=== PATIENT | female | born 1975 | race Caucasian/White ===

== ENCOUNTER → 2018-06-30 08:07 | Outpatient (CLI) | payer OTHER, SELFPAY ==
--- NOTE | 2018-06-30 08:08 | DI.US.S_ITS ---
ULTRASOUND OF LEFT BREAST: 06/30/2018 CLINICAL: Follow-up aspiration. Comparison is made to exams dated: 06/30/2018 mammogram, 06/30/2017 ultrasound biopsy, 06/30/2017 mammogram, 05/18/2017 ultrasound, and 05/18/2017 mammogram - [facility]. Color flow ultrasound of the left breast was performed on the areas of interest. Mojica scale images of the real-time examination were reviewed. There is a 1.2 cm x 6 cm x 5 cm cluster of microcysts in the left breast at 3 o'clock middle depth. This is not significantly changed and correlates with mammography findings. IMPRESSION: PROBABLY BENIGN The 1.2 cm x 6 cm x 5 cm cluster of microcysts in the left breast is probably benign. A follow-up left ultrasound in 6 months is recommended to demonstrate stability. This exam was interpreted at Station ID: [id number]. Electronically Signed By: Maryam brand/:06/30/2018 10:29:26 letter sent: Followup Recommended Ultrasound BI-RADS: 3 Probably benign
--- NOTE | 2018-06-30 08:08 | DI.MG.S_ITS ---
BILATERAL DIGITAL DIAGNOSTIC MAMMOGRAM 3D/2D: 06/30/2018 CLINICAL: Late short follow up, due bilaterally. Family history of breast cancer. Comparison is made to exams dated: 06/30/2017 mammogram and 05/18/2017 mammogram - [facility]. There are scattered fibroglandular elements in both breasts. There is an irregular asymmetry in the left breast at 3 o'clock middle depth. There is a biopsy clip associated with the asymmetry. No other significant masses, calcifications, or other findings are seen in either breast. IMPRESSION: INCOMPLETE: NEEDS ADDITIONAL IMAGING EVALUATION The irregular asymmetry in the left breast is indeterminate. A targeted ultrasound of the left breast is recommended and will be performed immediately following this exam. This exam was interpreted at Station ID: [id number]. NOTE: For mammograms, a report in lay terms will be sent to the patient. Approximately 15% of breast malignancies will not be visualized mammographically. In the management of a palpable breast mass, a negative mammogram must not discourage biopsy of a clinically suspicious lesion. Electronically Signed By: Maryam Cristobal M.D. lk/:06/30/2018 10:16:07 ACR BI-RADS Category 0: Incomplete 3340F
== END ==
PROVIDERS: PCP Family Medicine; Visit Provider Family Medicine
DX: R92.8 Other abnormal and inconclusive findings on diagnostic imaging of breast (principal); N64.89 Other specified disorders of breast; Z80.3 Family history of malignant neoplasm of breast
CPT/HCPCS: 76642; 77066; G0279

== ENCOUNTER → 2018-07-11 12:13 | Outpatient (CLI) | payer OTHER, SELFPAY ==
--- NOTE | 2018-07-28 16:27 | P.HOLT.S_ITS ---
Head Still Operator Report Referral & Results Date Patient Seen: 07/11/18 Requesting provider: Lizabeth Duggan Indication: Palpitations Duration of monitoring (days): 13 Diary information: Patient had to diary entries associated with sinus rhythm There were 5 patient triggered events associated with sinus rhythm, PACs, and PVCs Data: Minimum heart rate identified was 40 beats per minute at 08:12 on 07/23/2018 Maximum heart rate was 169 beats per minute at 13:57 on 07/15/2018 Less than 1% of identified beats or either PACs or PVCs Impression: Patient with occasional to rare PACs and PVCs No significant dysrhythmia identified in this study
== END ==
PROVIDERS: PCP Family Medicine; Visit Provider Family Medicine
DX: R00.2 Palpitations (principal)
CPT/HCPCS: 0296T; 0298T

== ENCOUNTER → 2018-07-28 07:42 | Outpatient (CLI) | payer OTHER, SELFPAY ==
--- NOTE | 2018-07-28 07:44 | DI.MRI.S_ITS ---
PROCEDURE: MR ANGIO HEAD WO CON INDICATIONS: screening for aneurysm, mult 1st degree relatives with hx of TECHNIQUE: Noncontrast axial 3-D [id number] MR angiogram, with 3-dimensional maximum intensity projection (MIP) reformats of the internal carotid arteries and posterior circulation then performed. COMPARISON: None. FINDINGS: Image quality: Excellent. Anterior circulation: Intracranial internal carotid arteries demonstrate normal size and intraluminal flow signal. The flow within the paired anterior cerebral arteries is normal and symmetric. The flow within the middle cerebral arteries is normal and symmetric. The anterior communicating artery is seen. No stenoses, occlusions, or aneurysms. Posterior circulation: Visualized portions of the vertebral arteries demonstrate normal caliber, and join to form a normal appearing basilar artery. The flow within the posterior cerebral arteries is normal and symmetric. No stenoses, occlusions, or aneurysms. IMPRESSION: Negative cerebral MR angiography. Dictated by: Darell Lopez M.D. on 07/28/2018 at 9:19 Approved by: Darell Lopez M.D. on 07/28/2018 at 9:21
== END ==
PROVIDERS: PCP Family Medicine; Visit Provider Family Medicine
DX: Z13.6 Encounter for screening for cardiovascular disorders (principal); Z82.49 Family history of ischemic heart disease and other diseases of the circulatory system
CPT/HCPCS: 70544

== ENCOUNTER → 2020-07-11 13:53 | Outpatient (CLI) | payer OTHER, SELFPAY ==
[2020-07-11 15:08] LABS: Add Manual Diff / Slide Review NO; Basophils Absolute Auto 100 /uL (0-100); Basophils Percent Auto 0.6 % (0-2); Eosinophils Absolute Auto 200 /uL (0-450); Eosinophils Percent Auto 2.9 % (2-4); Hematocrit 39.6 % (36-46); Hemoglobin 13.2 g/dL (12.0-16.0); Lymphocytes Absolute Auto 3000 /uL (1100-4500); Lymphocytes Percent Auto 35.9 % (25-40); Mean Corpuscular HGB Conc 33.3 % (30-36); Mean Corpuscular Hemoglobin 27.3 PG (26-34); Monocytes Absolute Auto 500 /uL (0-900); Neutrophils Absolute Auto 4600 /uL (1500-7000); Neutrophils Percent Auto 54.6 % (50-75); Platelet Count 351 X10^3/uL (150-400); Red Blood Cell Count 4.83 X10^6/uL (4.0-5.2); Red Cell Distribution Width 13.5 % (11.6-14.8); White Blood Cell Count 8.4 X10^3/uL (4.5-11.0)
[2020-07-11 15:19] LABS: Alanine Aminotransferase 34 IU/L (<35); Albumin 4.4 g/dL (3.5-5.0); Albumin Globulin Ratio 1.3 (1.0-2.8); Alkaline Phosphatase 97 U/L (38-126); Aspartate Aminotransferase 33 IU/L (14-36); Bilirubin Total 0.3 mg/dL (0.2-1.3); Blood Urea Nitrogen 13 mg/dL (7-17); Calcium 9.4 mg/dL (8.4-10.2); Carbon Dioxide 30 mmol/L (22-32); Chloride 101 mmol/L (98-107); Cholesterol 201 mg/dL (140-199); Estimated Glomerular Filt Rate > 60.0 mL/min (>60); Globulin 3.3 g/dL (1.7-4.1); Glucose 92 mg/dL (70-100); HDL Cholesterol 44 mg/dL (40-60); HEMOLYSIS < 15 (0-50); LDL Cholesterol Calculated 127 mg/dL (<100); Potassium 3.9 mmol/L (3.4-5.1); Sodium 138 mmol/L (137-145); Total Protein 7.7 g/dL (6.3-8.2); Triglycerides 148 mg/dL (35-150)
[2020-07-11 15:50] LABS: TSH w/ Reflex to FT4 1.74 uIU/mL (0.47-4.68)
== END ==
PROVIDERS: PCP Family Medicine; Referring Provider Family Medicine; Visit Provider Family Medicine
DX: R60.0 Localized edema (principal); Z13.220 Encounter for screening for lipoid disorders
CPT/HCPCS: 36415; 80053; 80061; 84443; 85025

== ENCOUNTER → 2022-05-22 10:00 | Outpatient (CLI) | payer OTHER, SELFPAY ==
--- NOTE | 2022-05-22 10:03 | DI.MG.S_ITS ---
BILATERAL DIGITAL SCREENING MAMMOGRAM 3D/2D WITH CAD: 05/22/2022 CLINICAL: Routine screening. Family history of breast cancer. Comparison is made to exams dated: 06/30/2018 mammogram, 06/30/2017 mammogram, and 05/18/2017 mammogram - . There are scattered areas of fibroglandular density in both breasts (category b / 25%-50% glandular tissue). Current study was also evaluated with a Computer Aided Detection (CAD) system. No significant masses, calcifications, or other findings are seen in either breast. There has been no significant interval change. IMPRESSION: NEGATIVE There is no mammographic evidence of malignancy. A 1 year screening mammogram is recommended. Based on the Tyrer Cuzick model (a risk assessment model) the patient's lifetime risk is 14.1% and her 10 year risk is 3.0%. According to the ACR, ACS, and NCCN guidelines, an annual breast MRI exam along with mammogram is recommended if the patient's lifetime risk is 20% or greater. This exam was interpreted at Station ID: [id number]. NOTE: For mammograms, a report in lay terms will be sent to the patient. Approximately 15% of breast malignancies will not be visualized mammographically. In the management of a palpable breast mass, a negative mammogram must not discourage biopsy of a clinically suspicious lesion. Electronically Signed By: Anthony brown/sari:05/24/2022 02:10:01 letter sent: Normal Exam ACR BI-RADS Category 1: Negative 3341F
== END ==
PROVIDERS: PCP Family Medicine; Referring Provider Family Medicine; Visit Provider Family Medicine
DX: Z12.31 Encounter for screening mammogram for malignant neoplasm of breast (principal); Z80.3 Family history of malignant neoplasm of breast
CPT/HCPCS: 77063; 77067

== ENCOUNTER → 2022-08-02 12:29 | Outpatient (CLI) | payer OTHER, SELFPAY ==
--- NOTE | 2022-08-02 12:30 | DI.US.S_ITS ---
PROCEDURE: US PELVIC COMPLETE INDICATIONS: IUD partially removed - arm of IUD tore off and not removed TECHNIQUE: Real-time scanning was performed of the pelvic organs, with image documentation. Additional endovaginal scanning was necessary due to incomplete visualization of the adnexal and endometrial structures by transabdominal scanning. COMPARISON: None. FINDINGS: Uterus: Uterus is anteverted and normal in size at 7.6 x 4.1 x 3.5 cm. The myometrium is homogeneous. The endometrium measures 3 mm combined thickness. A linear echogenic structure likely representing the remaining portion of the IUD is present in the uterine cavity. A portion of the remnant IUD may be penetrating into the myometrium, best seen on cine clips. Ovaries: The right ovary measures 2.5 x 1.7 x 1.5 cm, with a calculated ovarian volume of 4 cc. The left ovary is not visualized, likely obscured by bowel gas. Right ovary is unremarkable in appearance. No adnexal mass identified. Other: No pathologic free abdominal or pelvic fluid. IMPRESSION: A linear echogenic structure in the uterine cavity likely represents the remaining portion of the IUD, as per clinical history. A portion of the remnant IUD may be penetrating into the myometrium. We strive to produce accurate, complete, and clear reports of imaging services. To assist us in improving patient care, this report was composed using standard report templates and voice recognition software. Therefore, it may contain abnormal punctuation, insertions and/or omissions. Occasional wrong-word or sound-alike substitutions may occur. Though we review the report and make efforts to correct it, we do recommend that the report be read carefully in proper context to recognize any text inaccuracies. Dictated by: Tip Denny M.D. on 08/02/2022 at 15:12 Approved by: Tip Denny M.D. on 08/02/2022 at 15:41
== END ==
PROVIDERS: PCP Family Medicine; Referring Provider Family Medicine; Visit Provider Family Medicine
DX: T83.31XA Breakdown (mechanical) of intrauterine contraceptive device, initial encounter (principal)
CPT/HCPCS: 76856

== ENCOUNTER 2022-08-05 10:16 | Day surgery (SDC) | payer OTHER, SELFPAY ==
[2022-08-05] VITALS (7 sets, daily range): BP systolic 123–145; BP diastolic 70–90; PULSE 71–89; RESP 11–16; TEMP 36.5–37.3; O2SAT 97–100; BMI 35.3
[2022-08-05] MEDS: LACTATED RINGERS 1,000 ML 100 ML IV (10:28)
--- NOTE | 2022-08-05 12:17 | P.HPOB_ITS ---
History of Present Illness History of Present Illness Reason for admission: other (Arm of IUD embedded in the uterine wall) Narrative: Fadia Linares is a 47 year old female 1 para 0 who presents for diagnostic hysteroscopy with removal of embedded arm of the IUD, and placement of new Mirena IUD [facility] Family History (Updated 02/07/17 @ 00:00 by Conversion Provider) Grandfather Heart disease Mother Age: 67 Depression Mental health problem Grandfather Heart disease Grandmother Heart disease Stroke Social History household members: spouse Smoking Status: Former smoker alcohol intake: current substance use type: does not use Meds Home Medications and Allergies Home Medications Medication Instructions Recorded Confirmed Type copper 380 square mm intrauterine 1 ea vaginal X1 ##0 02/09/17 08/05/22 History device (ParaGard T 380A) multivitamin (Multiple Vitamins 1 tab PO DAILY ##0 02/09/17 08/05/22 History tablet) Allergies Allergy/AdvReac Type Severity Reaction Status Date / Time No Known Drug Allergies Allergy Verified 08/05/22 10:45 Exam Vital Signs (past 8 hours): - 08/05/22 10:47 Temperature 99.1 F Pulse Rate 89 Respiratory Rate 16 Blood Pressure 145/90 H Pulse Oximetry 100 Oxygen Delivery Method Room Air Oxygen Delivery Method Room Air Narrative Exam Narrative: HEENT: No thyromegaly, no anterior cervical or supraclavicular lymphadenopathy. Lungs:Clear to auscultation bilaterally, no wheezes. Cardiovascular: Regular rate and rhythm, no murmurs, rubs, or gallops. Abdomen: No scars. No hepatosplenomegaly. No masses palpable. External genitalia: Normal Vagina: Normal Cervix: Normal. Nulliparous Bimanual exam: 8 Week size anteverted uterus. Mobile. Ext: No edema Assessment & Plan Assessment & Plan narrative: Assessment: 47-year-old 1 para 0 with 1 arm of the Mirena IUD embedded in the uterine wall Incomplete removal of Mirena IUD Plan: Diagnostic hysteroscopy with retrieval of arm of IUD and placement of new Mirena IUD The risks, benefits, and alternatives to the procedure were explained to the patient. The risks including bleeding, infection, and uterine perforation. She understands these risks and agrees to proceed. A full par Q was held and consent form was signed. Time Spent With Patient Time with patient: less than 30 minutes
--- NOTE | 2022-08-05 12:20 | PM.PREOP ---
Pre-operative Note COVID-19 Criteria for continued procedure: Non-surgical alternatives not available or appropriate per current SOC Interval Note History & Physical reviewed/Exam performed by Physician: Yes Changes to H&P: No H&P completed within 30 days and has changed as indicated here:: 08/05/22
--- NOTE | 2022-08-05 12:57 | SUR.OPER ---
Lithotomy on padded OR bed, head on pillow, arms secured on padded arm boards at <90 degrees abduction. Legs secured in padded yellow fins stirrups.
--- NOTE | 2022-08-05 13:52 | PM.GYNOP.1 ---
Operative Date/Time/Diagnoses Date of procedure: 08/05/22 Time of procedure: 13:52 Pre-op diagnosis: Arm of Paragard IUD embedded in uterine wall on ultrasound Remainder of IUD removed in the office Post-op diagnosis: same Procedure & Clinicians Procedure: Procedures Operation Date: 08/05/22 11:45 Actual Procedure Side Surgeon p DIAGNOSTIC Hysteroscopy D&C, REMOVAL OF OLD IUD ARM AND w. placement of new PARAGARD IUD Fadia Mendoza MD Indications: One arm of Paragard IUD embedded in the wall of the uterus Surgeon: Fadia Mendoza Anesthesia Type: General (LMA) Operative Notes Findings: 7 week size anteverted uterus Changes in the endometrium c/w Paragard Arm of IUD embedded in the lower uterine segment/cervical wall on the right side Fallopian tube ostia observed Closure Type: not applicable Specimen(s): none Estimated blood loss (mL): 5 Blood products transfused: none Procedure in detail: After informed consent was obtained, the patient was taken to the operating room where she was placed in the dorsal supine position. After LMA general anesthesia was achieved, she was placed in the dorsal lithotomy position, and prepped and draped in the usual sterile fashion. A time-out was performed. A bivalve speculum was placed into the vagina and the anterior lip of the cervix grasped with a single-tooth tenaculum. The cervical os was sequentially dilated to the # 8 Hegar dilator. The hysteroscope passed easily into the endometrial cavity. The arm of the IUD was found to be folded in on itself and embedded in the lower uterine segment/ cervical wall on the patient's right side. The hysteroscope was removed. Polyp forceps were used but were unable to grasped the arm of the IUD. The cervical os was further dilated to the #9 Hegar dilator. The resectoscope passed easily into the endometrial cavity. The loop was extended and brought along the wall where the arm of the IUD was embedded. The arm came loose and was removed with the loop. The arm of the IUD was examined and was found to be complete. The hysteroscope passed easily back into the endometrial cavity. There was no further pieces of IUD visible. a new ParaGard IUD was placed into the uterus. The string was cut to 1.5 cm. The single-tooth tenaculum was removed from the anterior lip of the cervix. The bivalve speculum was removed from the vagina. Sponge, lap, and instrument counts were correct x2. The patient tolerated the procedure well, and was taken to PACU in stable condition. Complications: none Post-operative Condition: stable Disposition: PACU Plan for aftercare: Home after recovery
== END 2022-08-05 14:10 | disposition home or self-care (01) ==
PROVIDERS: PCP Family Medicine; Referring Provider Obstetrics & Gynecology; Visit Provider Obstetrics & Gynecology
PROC: 0UDB8ZZ Extraction of Endometrium, Via Natural or Artificial Opening Endoscopic (ICD-10-PCS; CPT 58558; principal; 2022-08-05 11:45)
DX: T83.89XA Other specified complication of genitourinary prosthetic devices, implants and grafts, initial encounter (principal); Z30.433 Encounter for removal and reinsertion of intrauterine contraceptive device
CPT/HCPCS: 58562; 58300; 81025; J1100; J2250; J2405; J2704; J3010; J7300